=== PATIENT | female | born 1985 | race Caucasian/White ===

== ENCOUNTER 2019-09-13 13:34 | Emergency (ER) | payer MEDICAID ==
[~2019-09-13] VITALS: Ht 157.5 cm; Wt 68.0 kg
[2019-09-13 15:29] LABS: INFLUENZA A ANTIGEN Negative (Negative); INFLUENZA B ANTIGEN Negative (Negative)
[2019-09-13 16:06] VITALS: BP 148/90
== END 2019-09-13 16:09 | disposition home or self-care (01) ==
LOC: M.ERS 13:34
PROVIDERS: Physician Assistant
DX: J06.9 Acute upper respiratory infection, unspecified (principal); Z90.49 Acquired absence of other specified parts of digestive tract; Z91.040 Latex allergy status; Z88.0 Allergy status to penicillin; Z88.6 Allergy status to analgesic agent